=== PATIENT | female | born 1990 | race Caucasian/White ===

== ENCOUNTER 2016-09-03 15:08 | Emergency (ER) | payer MEDICAID ==
[~2016-09-03 15:08] MED LIST: VICODIN
== END 2016-09-03 17:49 | disposition left against medical advice (07) ==
LOC: ER 17:27
DX: Z04.8 Encounter for examination and observation for other specified reasons (principal); Z53.21 Procedure and treatment not carried out due to patient leaving prior to being seen by health care provider